=== PATIENT | male | born 1975 | race Two or more races ===

== ENCOUNTER 2018-05-24 01:38 | Emergency (ER) | payer OTHER ==
[2018-05-24 01:57] VITALS: RESP 18; O2SAT 99
[2018-05-24] MEDS ORDERED: Lidocaine 5% Patch TD ONE (03:14)
[2018-05-24] MEDS ORDERED: Lidocaine 5% Patch TD STA (03:30)
--- NOTE | 2018-05-24 04:02 | ED PDOC ---
HPI: Back Time Seen by Provider: 05/24/18 01:41 Chief Complaint (Nursing): Back Pain Chief Complaint (Provider): Back Pain History Per: Patient History/Exam Limitations: no limitations Onset/Duration Of Symptoms: Other (a month) Additional Complaint(s): 42 years old male with no significant PMHx presents to ER for evaluation of right upper back pain status post workplace related injury onset a month ago involving lifting heavy objects. Patient states location of pain does not change and reports worsening in pain when he moves or twist his back. He states he has difficulty finding comfortable position. Patient is in physical therapy now and had x-rays as outpatient that showed no abnormality. He was prescribed Diclofenac and Flexeril that he used with no relief. Patient has an appointment to followup with his PMD on Saturday. PMD: None provided Past Medical History Reviewed: Historical Data, Nursing Documentation, Vital Signs Vital Signs: Last Vital Signs Temp 97.9 F 05/24/18 01:55 Pulse 107 H 05/24/18 01:55 Resp 18 05/24/18 01:55 BP 145/97 H 05/24/18 01:55 Pulse Ox 99 05/24/18 01:55 - Medical History PMH: No Chronic Diseases - Surgical History Surgical History: Hernia Repair - Family History Family History: States: Unknown Family Hx - Immunization History Hx Tetanus Toxoid Vaccination: No Hx Influenza Vaccination: No Hx Pneumococcal Vaccination: No - Home Medications Home Medications: Ambulatory Orders Medication Instructions Recorded Famotidine [Pepcid] 20 mg PO BID #20 tab 07/17/15 Ondansetron [Zofran Odt] 4 mg PO Q8H PRN #15 odt 07/17/15 Ibuprofen [Motrin Tab] 800 mg PO Q8H PRN #21 tab 04/27/18 Ketorolac Tromethamine [Toradol] 10 mg PO BID #20 tab 05/24/18 Methocarbamol [Robaxin] 1,000 mg PO PRN PRN #20 tablet 05/24/18 - Allergies Allergies/Adverse Reactions: Allergies Allergy/AdvReac Type Severity Reaction Status Date / Time No Known Allergies Allergy Verified 07/17/15 06:48 Review of Systems ROS Statement: Except As Marked, All Systems Reviewed And Found Negative Musculoskeletal: Positive for: Back Pain Physical Exam - Reviewed Nursing Documentation Reviewed: Yes Vital Signs Reviewed: Yes - Physical Exam Appears: Positive for: Well, No Acute Distress Head Exam: Positive for: ATRAUMATIC, NORMOCEPHALIC Back: Positive for: Other (Tenderness to thoracic paravertebral musculature ) Neurological/Psych: Positive for: Awake, Alert, Oriented (x3), Gait (Steady). Negative for: Motor/Sensory Deficits - ECG O2 Sat by Pulse Oximetry: 99 (RA) Pulse Ox Interpretation: Normal Medical Decision Making Medical Decision Making: Time: 4 A/P: musculoskeletal strain Not concern for spinal cord impingement syndrome --Will treat symptomatically and reevaluate 0 --PAtient is now lying down comfortably, reports improvement in pain --Advised patient to followup as scheduled --Return precautions given Scribe Attestation: Documented by Mercedes Frazier, acting as a scribe for Reed Stallings MD. Provider Scribe Attestation: All medical record entries made by the Scribe were at my direction and personally dictated by me. I have reviewed the chart and agree that the record accurately reflects my personal performance of the history, physical exam, medical decision making, and the department course for this patient. I have also personally directed, reviewed, and agree with the discharge instructions and disposition. Disposition - Clinical Impression Clinical Impression: Back pain - Disposition Referrals: Dano Guerin [Outside] Disposition: Routine/Home Disposition Time: 04:30 Condition: IMPROVED Prescriptions: Ketorolac Tromethamine [Toradol] 10 mg PO BID #20 tab Methocarbamol [Robaxin] 1,000 mg PO PRN PRN #20 tablet PRN Reason: Pain, Moderate (4-7) Instructions: Upper Back Pain Forms: [employer] (Swiss)
[2018-05-24 04:54] VITALS: BP 128/81; PULSE 92; TEMP 98.2
[2018-05-24] MEDS ORDERED: Lidocaine 5% Patch TD SCH (09:00)
== END 2018-05-24 04:52 | disposition home or self-care (01) ==
LOC: H.ER 01:38
DX: M54.6 Pain in thoracic spine (principal); X50.0XXA Overexertion from strenuous movement or load, initial encounter
CPT/HCPCS: 96372; 99283; J1885; J2270

== ENCOUNTER 2018-06-15 08:44 | Emergency (ER) | payer OTHER ==
[2018-06-15 08:50] VITALS: BMI 31.8
[2018-06-15 08:52] VITALS: TEMP 97.9; O2SAT 98
[2018-06-15 09:04] VITALS: PULSE 90; RESP 20
[2018-06-15] MEDS ORDERED: Oxycodone/Acetaminophen 5/325 mg Tab PO STA (09:25)
--- NOTE | 2018-06-15 09:31 | ED PDOC ---
HPI: Back Time Seen by Provider: 06/15/18 09:13 Chief Complaint (Nursing): Lower Extremity Problem/Injury History Per: Patient Onset/Duration Of Symptoms: Other (2 months) Current Symptoms Are (Timing): Still Present Quality Of Discomfort: Stabbing Severity: Moderate Previous Symptoms: Back Pain Associated Symptoms: None Additional Complaint(s): Low back pain assoc with pain post thigh and right calf. denies weakness or parasthesias. H/o back injury, being followed by ortho, scheduled for MRI of back but has not had it yet. Past Medical History Vital Signs: Last Vital Signs Temp 97.9 F 06/15/18 08:49 Pulse 90 06/15/18 09:03 Resp 20 06/15/18 09:03 BP 133/90 06/15/18 09:03 Pulse Ox 98 06/15/18 08:49 Primary Care Provider: Non [facility] Provider, - Medical History PMH: No Chronic Diseases - Surgical History Surgical History: Hernia Repair - Family History Family History: States: Unknown Family Hx - Immunization History Hx Tetanus Toxoid Vaccination: No Hx Influenza Vaccination: No Hx Pneumococcal Vaccination: No - Home Medications Home Medications: Ambulatory Orders Medication Instructions Recorded Famotidine [Pepcid] 20 mg PO BID #20 tab 07/17/15 Ondansetron [Zofran Odt] 4 mg PO Q8H PRN #15 odt 07/17/15 Ibuprofen [Motrin Tab] 800 mg PO Q8H PRN #21 tab 04/27/18 Ketorolac Tromethamine [Toradol] 10 mg PO BID #20 tab 05/24/18 Methocarbamol [Robaxin] 1,000 mg PO PRN PRN #20 tablet 05/24/18 - Allergies Allergies/Adverse Reactions: Allergies Allergy/AdvReac Type Severity Reaction Status Date / Time No Known Allergies Allergy Verified 07/17/15 06:48 Review of Systems Constitutional: Negative for: Fever Genitourinary Male: Negative for: Dysuria, Frequency, Incontinence Musculoskeletal: Positive for: Back Pain, Leg Pain Neurological: Negative for: Weakness, Numbness Physical Exam - Physical Exam Appears: Positive for: Non-toxic, No Acute Distress Skin: Positive for: Normal Color, Warm, DRY Back: Negative for: Vertebral Tenderness Extremity: Negative for: Calf Tenderness, Swelling Neurological/Psych: Positive for: Awake, Alert, Normal Tone. Negative for: Motor/Sensory Deficits - ECG O2 Sat by Pulse Oximetry: 98 Disposition - Clinical Impression Clinical Impression: Back pain - Patient ED Disposition Is Patient to be Admitted: No Counseled Patient/Family Regarding: Studies Performed, Diagnosis, Need For Followup - Disposition Referrals: Jad Driscoll III, MD [Staff Provider] - Disposition: Routine/Home Disposition Time: 10:44 Condition: FAIR Instructions: Radiculopathy (DC) Forms: [employer] (Japanese)
[2018-06-15] MEDS ORDERED: Oxycodone/Acetaminophen 5/325 mg Tab ONE (09:53)
[2018-06-15 11:03] VITALS: BP 130/86
--- NOTE | 2018-06-15 11:46 | US ---
Date of service: 06/15/2018 PROCEDURE: Right lower extremity venous duplex Doppler. HISTORY: calf pain COMPARISON: None available. TECHNIQUE: Common femoral, superficial femoral, popliteal and posterior tibial veins were evaluated. Flow was assessed with color Doppler, compressibility, assessment of phasic flow and augmentation response. FINDINGS: COMMON FEMORAL VEIN: Unremarkable. SUPERFICIAL FEMORAL VEIN: Unremarkable. POPLITEAL VEIN: Unremarkable. POSTERIOR TIBIAL VEIN: Unremarkable. OTHER FINDINGS: None. IMPRESSION: No evidence of deep venous thrombosis in the right lower extremity.
== END 2018-06-15 11:04 | disposition home or self-care (01) ==
LOC: H.ER 08:44
DX: M54.5 Low back pain (principal)